=== PATIENT | male | born 1985 | race Caucasian/White ===

== ENCOUNTER 2016-11-04 19:20 | Emergency (ER) | payer OTHER ==
--- NOTE | 2016-11-04 20:30 | ED NURSING NOTES ---
Clinical Report - Nurses [facility] [address] [place] [address] 11/04/2016 19:21 Patient: JAS VILLARREAL TRIAGE Triage time 19:Nov 04 2016. Acuity: LEVEL 4. Chief Complaint: (redness on finger). 19:33 11/04/16. --19:36 Kristy Nuñez R.N. 19:33 11/04/16. BP: 103/67. HR: 70. RR: 16. O2 saturation: 97%. Temp: 98.2 F. Pain level now: 02/17. --19:36 Kristy Nuñez R.N. <<STRICKEN ENTRY-- 19:11/04/16. HR: 70. RR: 16. O2 saturation: 97%. Temp: 98.2 F. --19:36 Kristy Nuñez R.N. --END STRIKE>> Change to Details. --19:59 Kristy Nuñez R.N. Weight: 108.8 kg stated. Height/Length: 72 inches Per Patient. BMI: 32.6. --19:32 Kristy Nuñez R.N. Medications None. --19:33 Kristy Nuñez R.N. Medication/allergy information source: the patient. --19:36 Kristy Nuñez R.N. Allergies No Known Drug Allergy. --19:33 Kristy Nuñez R.N. History Arrived by private vehicle. Historian: patient. Unaccompanied. Onset. (last friday). ( states was cleaning brush and was poked numerous times with thornes. States has been washing in and soaking it with no improvement). No fever. Treatment GI TECHNICIAN: None. PAST MEDICAL HX: Immunizations: status is unknown. SOCIAL HX: Heavy tobacco smoker- less than 1 pack per day. No alcohol use or drug use. No infectious disease exposure. ABUSE ASSESSMENT: No report of abuse. SELF HARM ASSESSMENT: A self harm assessment was performed. The patient answered "no" to the question "Have you recently felt down, depressed, or hopeless?", "Have you noticed less interest or pleasure in doing things?", "Do you have thoughts of harming or killing yourself?", "Are you here because you tried to hurt yourself?", "Have you ever tried to hurt yourself before today?", "Have you recently had thoughts about harming or killing others?" and "Do you have any dangerous items in your possession?". FALL RISK ASSESSMENT: Fall risk assessment completed. No fall risk identified. NUTRITIONAL RISK ASSESSMENT: The nutritional risk assessment revealed no deficiencies. FUNCTIONAL ASSESSMENT: Functional assessment: no impairments noted. LEARNING NEEDS ASSESSMENT: The learning needs assessment revealed no barriers. SKIN INTEGRITY ASSESSMENT: Skin integrity risk assessment completed. No skin integrity risk identified. --19:36 Kristy Nuñez R.N. PROBLEMS: Dental Caries. Dental Pain. Headache. --19:34 Kristy Nuñez R.N. ADDITIONAL SURGERIES: Sinus Surgery. --19:34 Kristy Nuñez R.N. Interventions ID band on patient. --19:36 Kristy Nuñez R.N. NURSING PROGRESS NOTES 19:35 11/04/16. The initial plan of care for this patient includes an assessment with efforts to address the presence of pain; impairment of the integumentary system. This plan of care was discussed with the patient. Reassurance given. Patient identifiers checked. Call light placed in reach. Bed placed in lowest position. Brakes of bed on. Patient ready for evaluation. --19:38 Kristy Nuñez R.N. 20:09 11/04/16. BP: 110/73. HR: 88. RR: 16. O2 saturation: 97% on room air. Temp: 97.9 F (oral). Pain level now: 12/18. --20:10 Kaur San 20:53 11/04/2016 Bactrim DS (Sulfamethoxazole-TMP DS) PO 1 tab given. Allergies verified and confirmed 5 rights. --20:53 Elver Ellison R.N. 20:53 11/04/2016 Keflex (Cephalexin) PO 500 mg given. Allergies verified and confirmed 5 rights. --20:53 Elver Ellison R.N. DISPOSITION / DISCHARGE Departure time: 20:55. Condition at departure: improved. No learning barriers present. Discharge instructions provided and reviewed with the patient. Reviewed medication(s) side effects, precautions, dosing and course information. Prescription(s) given to the patient (antibiotics and motrin). [facility] Patient verbalized understanding. Written instructions provided in [place]. The patient was discharged by the physician retail event and sales assistant. He was discharged home and unaccompanied at time of discharge. He left the Emergency Department ambulatory and via private vehicle. Patient driving. ( pt did not want his VS taken again at discharge.). OK COMA SCORE: Ok Coma Scale: 15- eyes open spontaneously (4); best verbal response- oriented x 4 (5); best motor response- obeys commands (6). --20:57 Elver Ellison R.N. Locked/Released at 11/04/2016 20:57 by Elver Ellison R.N.
--- NOTE | 2016-11-04 20:30 | ED ORDER SUMMARY ---
..... Patient: JAS VILLARREAL OrderSheet [facility] VisitID: [id number] [address] [place] [address] 31y, M Registration Date/Time: 11/04/2016 ORDER SHEET Weight: 108.8 kg (stated) Allergies: No Known Drug Allergy GENERAL ORDERS: Finger Left (3) Urgent (19:45 11/04/2016 EKoroleva P.A.-C) (Ack 19:48 AMcQuoid ER Tech1) (20:01 AMcQuoid ER Tech1) Vitals (BP) (19:56 11/04/2016 EKoroleva P.A.-C) (20:08 CHategekimana) MEDICATION ORDERS: Bactrim DS PO (Tablet 800-160 mg) 1 tab (NOW) (20:28 11/04/2016 EKoroleva P.A.-C) (20:53 TLewis R.N.) Keflex PO 500 mg (NOW) (20:28 11/04/2016 EKoroleva P.A.-C) (20:53 TLewis R.N.) IV FLUIDS: ORDER SHEET NOTES: [Electronically signed by Elver Ellison R.N. (20:57 11/04/2016)] [Electronically signed by Kala Alexander P.A.-C (21:18 11/04/2016)] [Electronically locked/signed by Elver Ellison R.N. (20:57 11/04/2016)]
--- NOTE | 2016-11-04 20:30 | ED ORDER SUMMARY ---
..... Patient: JAS VILLARREAL OrderSheet [facility] VisitID: [id number] [address] [place] [address] 31y, M Registration Date/Time: 11/04/2016 ORDER SHEET Weight: 108.8 kg (stated) Allergies: No Known Drug Allergy GENERAL ORDERS: Finger Left (3) Urgent (19:45 11/04/2016 EKoroleva P.A.-C) (Ack 19:48 AMcQuoid ER Tech1) (20:01 AMcQuoid ER Tech1) Vitals (BP) (19:56 11/04/2016 EKoroleva P.A.-C) (20:08 CHategekimana) MEDICATION ORDERS: Bactrim DS PO (Tablet 800-160 mg) 1 tab (NOW) (20:28 11/04/2016 EKoroleva P.A.-C) (20:53 TLewis R.N.) Keflex PO 500 mg (NOW) (20:28 11/04/2016 EKoroleva P.A.-C) (20:53 TLewis R.N.) IV FLUIDS: ORDER SHEET NOTES: [Electronically signed by Elver Ellison R.N. (20:57 11/04/2016)] [Electronically signed by Kala Alexander P.A.-C (21:18 11/04/2016)] [Electronically locked/signed by Elver Ellison R.N. (20:57 11/04/2016)]
--- NOTE | 2016-11-04 20:30 | ED NURSING NOTES ---
Clinical Report - Nurses [facility] [address] [place] [address] 11/04/2016 19:21 Patient: JAS VILLARREAL TRIAGE Triage time 19:Nov 04 2016. Acuity: LEVEL 4. Chief Complaint: (redness on finger). 19:33 11/04/16. --19:36 Kristy Nuñez R.N. 19:33 11/04/16. BP: 103/67. HR: 70. RR: 16. O2 saturation: 97%. Temp: 98.2 F. Pain level now: 02/17. --19:36 Kristy Nuñez R.N. <<STRICKEN ENTRY-- 19:11/04/16. HR: 70. RR: 16. O2 saturation: 97%. Temp: 98.2 F. --19:36 Kristy Nuñez R.N. --END STRIKE>> Change to Details. --19:59 Kristy Nuñez R.N. Weight: 108.8 kg stated. Height/Length: 72 inches Per Patient. BMI: 32.6. --19:32 Kristy Nuñez R.N. Medications None. --19:33 Kristy Nuñez R.N. Medication/allergy information source: the patient. --19:36 Kristy Nuñez R.N. Allergies No Known Drug Allergy. --19:33 Kristy Nuñez R.N. History Arrived by private vehicle. Historian: patient. Unaccompanied. Onset. (last friday). ( states was cleaning brush and was poked numerous times with thornes. States has been washing in and soaking it with no improvement). No fever. Treatment TRUST ADMINISTRATIVE ASSISTANT: None. PAST MEDICAL HX: Immunizations: status is unknown. SOCIAL HX: Heavy tobacco smoker- less than 1 pack per day. No alcohol use or drug use. No infectious disease exposure. ABUSE ASSESSMENT: No report of abuse. SELF HARM ASSESSMENT: A self harm assessment was performed. The patient answered "no" to the question "Have you recently felt down, depressed, or hopeless?", "Have you noticed less interest or pleasure in doing things?", "Do you have thoughts of harming or killing yourself?", "Are you here because you tried to hurt yourself?", "Have you ever tried to hurt yourself before today?", "Have you recently had thoughts about harming or killing others?" and "Do you have any dangerous items in your possession?". FALL RISK ASSESSMENT: Fall risk assessment completed. No fall risk identified. NUTRITIONAL RISK ASSESSMENT: The nutritional risk assessment revealed no deficiencies. FUNCTIONAL ASSESSMENT: Functional assessment: no impairments noted. LEARNING NEEDS ASSESSMENT: The learning needs assessment revealed no barriers. SKIN INTEGRITY ASSESSMENT: Skin integrity risk assessment completed. No skin integrity risk identified. --19:36 Kristy Nuñez R.N. PROBLEMS: Dental Caries. Dental Pain. Headache. --19:34 Kristy Nuñez R.N. ADDITIONAL SURGERIES: Sinus Surgery. --19:34 Kristy Nuñez R.N. Interventions ID band on patient. --19:36 Kristy Nuñez R.N. NURSING PROGRESS NOTES 19:35 11/04/16. The initial plan of care for this patient includes an assessment with efforts to address the presence of pain; impairment of the integumentary system. This plan of care was discussed with the patient. Reassurance given. Patient identifiers checked. Call light placed in reach. Bed placed in lowest position. Brakes of bed on. Patient ready for evaluation. --19:38 Kristy Nuñez R.N. 20:09 11/04/16. BP: 110/73. HR: 88. RR: 16. O2 saturation: 97% on room air. Temp: 97.9 F (oral). Pain level now: 12/18. --20:10 Kaur San 20:53 11/04/2016 Bactrim DS (Sulfamethoxazole-TMP DS) PO 1 tab given. Allergies verified and confirmed 5 rights. --20:53 Elver Ellison R.N. 20:53 11/04/2016 Keflex (Cephalexin) PO 500 mg given. Allergies verified and confirmed 5 rights. --20:53 Elver Ellison R.N. DISPOSITION / DISCHARGE Departure time: 20:55. Condition at departure: improved. No learning barriers present. Discharge instructions provided and reviewed with the patient. Reviewed medication(s) side effects, precautions, dosing and course information. Prescription(s) given to the patient (antibiotics and motrin). Reviewed referrals ([facility]). Patient verbalized understanding. Written instructions provided in [place]. The patient was discharged by the physician title i instructional assistant. He was discharged home and unaccompanied at time of discharge. He left the Emergency Department ambulatory and via private vehicle. Patient driving. ( pt did not want his VS taken again at discharge.). OK COMA SCORE: Ok Coma Scale: 15- eyes open spontaneously (4); best verbal response- oriented x 4 (5); best motor response- obeys commands (6). --20:57 Elver Ellison R.N. Locked/Released at 11/04/2016 20:57 by Elver Ellison R.N.
--- NOTE | 2016-11-04 20:30 | ED CLINICAL REPORT ---
Clinical Report - Physicians/Mid Levels [facility] [address] [place] [address] 11/04/2016 19:21 Patient: JAS VILLARREAL Time Seen: 19:48 Nov 04 2016. Arrived- By private vehicle. Historian- patient. HISTORY OF PRESENT ILLNESS Chief Complaint: SKIN RASH. 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 It is described as painful. It has been located on the left upper extremity (left middle finger). A possible cause has been identified. 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 REVIEW OF SYSTEMS No fever, cough, difficulty breathing, nausea or genital lesions. All systems otherwise negative, except as recorded above. SOCIAL HISTORY Smoker- current status unknown. No alcohol use or drug use. ADDITIONAL NOTES The nursing notes have been reviewed. PHYSICAL EXAM Vital Signs: 11/04/2016 19:33 HR: 70. RR: 16. O2 saturation: 97%. Temp: 98.2 F. Appearance: Alert. CVS: Normal heart rate and rhythm. Heart sounds normal. Respiratory: No respiratory distress. Skin: Skin warm. Erythema. No tender indurated area. Cellulitis (at proximal mcp extending into drosal pip, full rom/ and sensation). Skin rash present- b/l ears erythema, no warmth, no fluctulance. There is warmth, tenderness and swelling. No lymphangitis, induration, weeping, thickening or inflammation. No abscess. Extremities: (full rom , good distal sensation and good cap reifll). Neuro: Oriented X 3. LABS, X-RAYS, AND EKG Lt UE Digits X-ray: No bony lesion, air in the soft tissue or foreign body. No digit fracture of the left upper extremity or left metacarpal fracture. Joint spaces normal. Interpretation time: 2019. PROGRESS AND PROCEDURES Course of Care: At this time early signs of infection, with cellulitis, full range of motion, no signs of tenosynovitis. 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 Denies history of MRSA, [facility]. Stable otherwise. Afebrile. Patient for close monitoring and follow-up and understands plan and need for such. No palpable abscess at this time and suspicion for such is low. Patient is stable. Patient/family counseled. Disposition: Discharged. CLINICAL IMPRESSION Cellulitis of the left middle finger. INSTRUCTIONS (formerly [facility]: Address: [address] [place] [address] warm packs or soaks in water and soap/ epsom salt repeat exam if not clearly improved in 48 hours at [facility] or worst case scenario in [facility] , keep finger/ hand above heart at eye level MOTRIN). Prescription Medications: Bactrim DS 800 mg / 160 mg: take 1 tablet orally every 12 hours for 10 days. No refill. Substitution is permissible. Keflex 500 mg: take 1 capsule orally every 8 hours for 10 days. No refill. Substitution is permissible. Motrin 800 mg tablets: take 1 tablet orally every 8 hours for 5 days, as needed for pain. Dispense fifteen (15). No refill. Substitution is permissible. Bactroban 2% ointment: apply small amount to affected area three times daily for 5 days. Dispense twenty-two (22) grams. No refills. Substitution is permissible. Follow-up: Follow up with your doctor in two days. (Electronically signed by Kala Alexander P.A.-C 11/04/2016 21:19)
--- NOTE | 2016-11-04 20:30 | ED CLINICAL REPORT ---
Clinical Report - Physicians/Mid Levels [facility] [address] [place] [address] 11/04/2016 19:21 Patient: JAS VILLARREAL Time Seen: 19:48 Nov 04 2016. Arrived- By private vehicle. Historian- patient. HISTORY OF PRESENT ILLNESS Chief Complaint: SKIN RASH. 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 It is described as painful. It has been located on the left upper extremity (left middle finger). A possible cause has been identified. 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 REVIEW OF SYSTEMS No fever, cough, difficulty breathing, nausea or genital lesions. All systems otherwise negative, except as recorded above. SOCIAL HISTORY Smoker- current status unknown. No alcohol use or drug use. ADDITIONAL NOTES The nursing notes have been reviewed. PHYSICAL EXAM Vital Signs: 11/04/2016 19:33 HR: 70. RR: 16. O2 saturation: 97%. Temp: 98.2 F. Appearance: Alert. CVS: Normal heart rate and rhythm. Heart sounds normal. Respiratory: No respiratory distress. Skin: Skin warm. Erythema. No tender indurated area. Cellulitis (at proximal mcp extending into drosal pip, full rom/ and sensation). Skin rash present- b/l ears erythema, no warmth, no fluctulance. There is warmth, tenderness and swelling. No lymphangitis, induration, weeping, thickening or inflammation. No abscess. Extremities: (full rom , good distal sensation and good cap reifll). Neuro: Oriented X 3. LABS, X-RAYS, AND EKG Lt UE Digits X-ray: No bony lesion, air in the soft tissue or foreign body. No digit fracture of the left upper extremity or left metacarpal fracture. Joint spaces normal. Interpretation time: 2019. PROGRESS AND PROCEDURES Course of Care: At this time early signs of infection, with cellulitis, full range of motion, no signs of tenosynovitis. 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 Denies history of MRSA, [facility]. Stable otherwise. Afebrile. Patient for close monitoring and follow-up and understands plan and need for such. No palpable abscess at this time and suspicion for such is low. Patient is stable. Patient/family counseled. Disposition: Discharged. CLINICAL IMPRESSION Cellulitis of the left middle finger. INSTRUCTIONS (formerly [facility]: Address: [address] [place] [address] warm packs or soaks in water and soap/ epsom salt repeat exam if not clearly improved in 48 hours at [facility] or worst case scenario in [facility] , keep finger/ hand above heart at eye level MOTRIN). Prescription Medications: Bactrim DS 800 mg / 160 mg: take 1 tablet orally every 12 hours for 10 days. No refill. Substitution is permissible. Keflex 500 mg: take 1 capsule orally every 8 hours for 10 days. No refill. Substitution is permissible. Motrin 800 mg tablets: take 1 tablet orally every 8 hours for 5 days, as needed for pain. Dispense fifteen (15). No refill. Substitution is permissible. Bactroban 2% ointment: apply small amount to affected area three times daily for 5 days. Dispense twenty-two (22) grams. No refills. Substitution is permissible. Follow-up: Follow up with your doctor in two days. (Electronically signed by Kala Alexander P.A.-C 11/04/2016 21:19)
--- NOTE | 2016-11-04 21:19 | ED MED RECONCILIATION SUMMARY ---
Patient: JAS VILLARREAL Medication Reconciliation Report [facility] VisitID: [id number] [address] [place] [address] 31y, M Registration Date/Time: 11/04/2016 Weight: 108.8 kg Height/Length: 72 in. BMI: 32.6 ALLERGIES: No Known Drug Allergy The patient's Home Medications are listed below: NONE. The source(s) of the original Home Medication information: patient The following Medications were given to the patient in the Emergency Department: Bactrim DS [PO] PO 1 tab, administered: 11/04/2016 8:53:00 PM Keflex [PO] PO 500 mg, administered: 11/04/2016 8:53:00 PM The following Medications were prescribed to the patient: Bactrim DS 800 mg / 160 mg: take 1 tablet orally every 12 hours for 10 days. No refill. Substitution is permissible. -- Kala Alexander, P.A.-C Keflex 500 mg: take 1 capsule orally every 8 hours for 10 days. No refill. Substitution is permissible. -- Kala Alexander, P.A.-C Motrin 800 mg tablets: take 1 tablet orally every 8 hours for 5 days, as needed for pain. Dispense fifteen (15). No refill. Substitution is permissible. -- Kala Alexander, P.A.-C Bactroban 2% ointment: apply small amount to affected area three times daily for 5 days. Dispense twenty-two (22) grams. No refills. Substitution is permissible. -- Kala Alexander, P.A.-C
--- NOTE | 2016-11-04 21:19 | ED MAR SUMMARY ---
..... Medication Administration Record [facility] [address] [place] [address] Patient: JAS VILLARREAL Visit ID: [id number] 31y, M Weight: 108.8 kg Height/Length: 72 in BMI: 32.6 ALLERGIES: No Known Drug Allergy Given 20:53 11/04/2016 Elver Ellison R.N. Medication Administered: BACTRIM DS [PO] (SULFAMETHOXAZOLE-TMP DS), Dose: 1 tab PO. Medication Ordered: Bactrim DS PO (Tablet 800-160 mg) 1 tab (NOW). Given 20:53 11/04/2016 Elver Ellison R.N. Medication Administered: KEFLEX [PO] (CEPHALEXIN), Dose: 500 mg PO. Medication Ordered: Keflex PO 500 mg (NOW).
--- NOTE | 2016-11-04 21:19 | ED DISCHARGE INSTRUCTIONS ---
Patient: JAS VILLARREAL General Instructions [facility] VisitID: [id number] [address] [place] [address] 31y, M Registration Date/Time: 11/04/2016 Cellulitis of the left middle finger. INSTRUCTIONS ([facility]: Address: [address] [place] [address] warm packs or soaks in water and soap/ epsom salt repeat exam if not clearly improved in 48 hours at [facility] or worst case scenario in ER [facility] , keep finger/ hand above heart at eye level MOTRIN). Prescription Medications: Bactrim DS 800 mg / 160 mg: take 1 tablet orally every 12 hours for 10 days. No refill. Substitution is permissible. Keflex 500 mg: take 1 capsule orally every 8 hours for 10 days. No refill. Substitution is permissible. Motrin 800 mg tablets: take 1 tablet orally every 8 hours for 5 days, as needed for pain. Dispense fifteen (15). No refill. Substitution is permissible. Bactroban 2% ointment: apply small amount to affected area three times daily for 5 days. Dispense twenty-two (22) grams. No refills. Substitution is permissible. Follow-up: Follow up with your doctor in two days. ADDITIONAL INFORMATION Cellulitis You have an infection of the skin known as cellulitis. This usually starts with a scrape, cut, insect bite, blister or other opening in the skin which becomes infected. This is a serious condition. It must be watched closely to be sure the infection is not spreading. With antibiotic treatment, the size of the red area will gradually shrink in size until the skin returns to normal. This will take 7-10 days. The red area should never increase in size once the antibiotic medicine has been started. Occasionally, an infection will be resistant to one antibiotic and another one will have to be used. Home Care: 1) Limit the use of the affected part, since excess movement can cause the infection to spread. 2) If the infection is on your leg, walk as little as possible during the first few days of the treatment. Keep your leg elevated while sitting. This will reduce swelling. 3) Take all of the antibiotic medicine exactly as directed until it is gone. Be careful not to miss any doses, especially during the first seven days. Follow Up with your doctor or this facility as directed. Check the infected area daily for the warning signs listed below. Get Prompt Medical Attention if any of the following occur: -- Spreading area of redness -- Increasing swelling or pain -- Appearance of pus or drainage -- Fever over 100.4 F (38.0 C) oral, or over 101.4 F (38.6 C) rectal, after two days on antibiotics Sulfamethoxazole, Trimethoprim Oral tablet What is this medicine? SULFAMETHOXAZOLE; TRIMETHOPRIM or SMX-TMP (suhl fuh meth OK ang zohl; trye METH oh prim) is a combination of a sulfonamide antibiotic and a second antibiotic, trimethoprim. It is used to treat or prevent certain kinds of bacterial infections. It will not work for colds, flu, or other viral infections. How should I use this medicine? Take this medicine by mouth with a full glass of water. Follow the directions on the prescription label. Take your medicine at regular intervals. Do not take it more often than directed. Do not skip doses or stop your medicine early. Talk to your plasma processor regarding the use of this medicine in children. Special care may be needed. This medicine has been used in children as young as 2 months of age. What side effects may I notice from receiving this medicine? Side effects that you should report to your doctor or health child care cook as soon as possible: allergic reactions like skin rash or hives, swelling of the face, lips, or tongue breathing problems fever or chills, sore throat irregular heartbeat, chest pain joint or muscle pain pain or difficulty passing urine red pinpoint spots on skin redness, blistering, peeling or loosening of the skin, including inside the mouth unusual bleeding or bruising unusually weak or tired yellowing of the eyes or skin Side effects that usually do not require medical attention (report to your doctor or health child care cook if they continue or are bothersome): diarrhea dizziness headache loss of appetite nausea, vomiting nervousness What may interact with this medicine? Do not take this medicine with any of the following medications: aminobenzoate potassium dofetilide metronidazole This medicine may also interact with the following medications: ALIYA inhibitors like benazepril, enalapril, lisinopril, and ramipril cyclosporine digoxin diuretics indomethacin medicines for diabetes methenamine methotrexate phenytoin potassium supplements pyrimethamine sulfinpyrazone tricyclic antidepressants warfarin What if I miss a dose? If you miss a dose, take it as soon as you can. If it is almost time for your next dose, take only that dose. Do not take double or extra doses. Where should I keep my medicine? Keep out of the reach of children. Store at room temperature between 20 to 25 degrees C (68 to 77 degrees F). Protect from light. Throw away any unused medicine after the expiration date. What should I tell my health care provider before I take this medicine? They need to know if you have any of these conditions: anemia asthma being treated with anticonvulsants if you frequently drink alcohol containing drinks kidney disease liver disease low level of folic acid or wctqicg-[id number] dehydrogenase poor nutrition or malabsorption porphyria severe allergies thyroid disorder an unusual or allergic reaction to sulfamethoxazole, trimethoprim, sulfa drugs, other medicines, foods, dyes, or preservatives or trying to get breast-feeding What should I watch for while using this medicine? Tell your doctor or health child care cook if your symptoms do not improve. Drink several glasses of water a day to reduce the risk of kidney problems. Do not treat diarrhea with over the counter products. Contact your doctor if you have diarrhea that lasts more than 2 days or if it is severe and watery. This medicine can make you more sensitive to the sun. Keep out of the sun. If you cannot avoid being in the sun, wear protective clothing and use a sunscreen. Do not use sun lamps or tanning beds/booths. Cephalexin Monohydrate Oral tablet What is this medicine? CEPHALEXIN (sef a TIA in) is a cephalosporin antibiotic. It is used to treat certain kinds of bacterial infections It will not work for colds, flu, or other viral infections. How should I use this medicine? Take this medicine by mouth with a full glass of water. Follow the directions on the prescription label. This medicine can be taken with or without food. Take your medicine at regular intervals. Do not take your medicine more often than directed. Take all of your medicine as directed even if you think you are better. Do not skip doses or stop your medicine early. Talk to your plasma processor regarding the use of this medicine in children. While this drug may be prescribed for selected conditions, precautions do apply. What side effects may I notice from receiving this medicine? Side effects that you should report to your doctor or health child care cook as soon as possible: allergic reactions like skin rash, itching or hives, swelling of the face, lips, or tongue breathing problems pain or trouble passing urine redness, blistering, peeling or loosening of the skin, including inside the mouth severe or watery diarrhea unusually weak or tired yellowing of the eyes, skin Side effects that usually do not require medical attention (report to your doctor or health child care cook if they continue or are bothersome): gas or heartburn genital or anal irritation headache joint or muscle pain nausea, vomiting What may interact with this medicine? probenecid some other antibiotics What if I miss a dose? If you miss a dose, take it as soon as you can. If it is almost time for your next dose, take only that dose. Do not take double or extra doses. There should be at least 4 to 6 hours between doses. Where should I keep my medicine? Keep out of the reach of children. Store at room temperature between 59 and 86 degrees F (15 and 30 degrees C). Throw away any unused medicine after the expiration date. What should I tell my health care provider before I take this medicine? They need to know if you have any of these conditions: kidney disease stomach or intestine problems, especially colitis an unusual or allergic reaction to cephalexin, other cephalosporins, penicillins, other antibiotics, medicines, foods, dyes or preservatives or trying to get breast-feeding What should I watch for while using this medicine? Tell your doctor or health child care cook if your symptoms do not begin to improve in a few days. Do not treat diarrhea with over the counter products. Contact your doctor if you have diarrhea that lasts more than 2 days or if it is severe and watery. If you have diabetes, you may get a false-positive result for sugar in your urine. Check with your doctor or health child care cook. You have been given the following additional information: Cellulitis Sulfamethoxazole, Trimethoprim Oral tablet Cephalexin Monohydrate Oral tablet (Electronically signed by Kala Alexander P.A.-C 11/04/2016 21:19)
--- NOTE | 2016-11-04 21:19 | ED DISCHARGE INSTRUCTIONS ---
Patient: JAS VILLARREAL General Instructions [facility] VisitID: [id number] [address] [place] [address] 31y, M Registration Date/Time: 11/04/2016 Cellulitis of the left middle finger. INSTRUCTIONS ([facility]: Address: [address] [place] [address] warm packs or soaks in water and soap/ epsom salt repeat exam if not clearly improved in 48 hours at [facility] or worst case scenario in ER [facility] , keep finger/ hand above heart at eye level MOTRIN). Prescription Medications: Bactrim DS 800 mg / 160 mg: take 1 tablet orally every 12 hours for 10 days. No refill. Substitution is permissible. Keflex 500 mg: take 1 capsule orally every 8 hours for 10 days. No refill. Substitution is permissible. Motrin 800 mg tablets: take 1 tablet orally every 8 hours for 5 days, as needed for pain. Dispense fifteen (15). No refill. Substitution is permissible. Bactroban 2% ointment: apply small amount to affected area three times daily for 5 days. Dispense twenty-two (22) grams. No refills. Substitution is permissible. Follow-up: Follow up with your doctor in two days. ADDITIONAL INFORMATION Cellulitis You have an infection of the skin known as cellulitis. This usually starts with a scrape, cut, insect bite, blister or other opening in the skin which becomes infected. This is a serious condition. It must be watched closely to be sure the infection is not spreading. With antibiotic treatment, the size of the red area will gradually shrink in size until the skin returns to normal. This will take 7-10 days. The red area should never increase in size once the antibiotic medicine has been started. Occasionally, an infection will be resistant to one antibiotic and another one will have to be used. Home Care: 1) Limit the use of the affected part, since excess movement can cause the infection to spread. 2) If the infection is on your leg, walk as little as possible during the first few days of the treatment. Keep your leg elevated while sitting. This will reduce swelling. 3) Take all of the antibiotic medicine exactly as directed until it is gone. Be careful not to miss any doses, especially during the first seven days. Follow Up with your doctor or this facility as directed. Check the infected area daily for the warning signs listed below. Get Prompt Medical Attention if any of the following occur: -- Spreading area of redness -- Increasing swelling or pain -- Appearance of pus or drainage -- Fever over 100.4 F (38.0 C) oral, or over 101.4 F (38.6 C) rectal, after two days on antibiotics Sulfamethoxazole, Trimethoprim Oral tablet What is this medicine? SULFAMETHOXAZOLE; TRIMETHOPRIM or SMX-TMP (suhl fuh meth OK ang zohl; trye METH oh prim) is a combination of a sulfonamide antibiotic and a second antibiotic, trimethoprim. It is used to treat or prevent certain kinds of bacterial infections. It will not work for colds, flu, or other viral infections. How should I use this medicine? Take this medicine by mouth with a full glass of water. Follow the directions on the prescription label. Take your medicine at regular intervals. Do not take it more often than directed. Do not skip doses or stop your medicine early. Talk to your safety fire boss regarding the use of this medicine in children. Special care may be needed. This medicine has been used in children as young as 2 months of age. What side effects may I notice from receiving this medicine? Side effects that you should report to your doctor or health transitions rn care coordinator as soon as possible: allergic reactions like skin rash or hives, swelling of the face, lips, or tongue breathing problems fever or chills, sore throat irregular heartbeat, chest pain joint or muscle pain pain or difficulty passing urine red pinpoint spots on skin redness, blistering, peeling or loosening of the skin, including inside the mouth unusual bleeding or bruising unusually weak or tired yellowing of the eyes or skin Side effects that usually do not require medical attention (report to your doctor or health transitions rn care coordinator if they continue or are bothersome): diarrhea dizziness headache loss of appetite nausea, vomiting nervousness What may interact with this medicine? Do not take this medicine with any of the following medications: aminobenzoate potassium dofetilide metronidazole This medicine may also interact with the following medications: ALIYA inhibitors like benazepril, enalapril, lisinopril, and ramipril cyclosporine digoxin diuretics indomethacin medicines for diabetes methenamine methotrexate phenytoin potassium supplements pyrimethamine sulfinpyrazone tricyclic antidepressants warfarin What if I miss a dose? If you miss a dose, take it as soon as you can. If it is almost time for your next dose, take only that dose. Do not take double or extra doses. Where should I keep my medicine? Keep out of the reach of children. Store at room temperature between 20 to 25 degrees C (68 to 77 degrees F). Protect from light. Throw away any unused medicine after the expiration date. What should I tell my health care provider before I take this medicine? They need to know if you have any of these conditions: anemia asthma being treated with anticonvulsants if you frequently drink alcohol containing drinks kidney disease liver disease low level of folic acid or trnftim-4-noujssicw dehydrogenase poor nutrition or malabsorption porphyria severe allergies thyroid disorder an unusual or allergic reaction to sulfamethoxazole, trimethoprim, sulfa drugs, other medicines, foods, dyes, or preservatives or trying to get breast-feeding What should I watch for while using this medicine? Tell your doctor or health transitions rn care coordinator if your symptoms do not improve. Drink several glasses of water a day to reduce the risk of kidney problems. Do not treat diarrhea with over the counter products. Contact your doctor if you have diarrhea that lasts more than 2 days or if it is severe and watery. This medicine can make you more sensitive to the sun. Keep out of the sun. If you cannot avoid being in the sun, wear protective clothing and use a sunscreen. Do not use sun lamps or tanning beds/booths. Cephalexin Monohydrate Oral tablet What is this medicine? CEPHALEXIN (sef a TIA in) is a cephalosporin antibiotic. It is used to treat certain kinds of bacterial infections It will not work for colds, flu, or other viral infections. How should I use this medicine? Take this medicine by mouth with a full glass of water. Follow the directions on the prescription label. This medicine can be taken with or without food. Take your medicine at regular intervals. Do not take your medicine more often than directed. Take all of your medicine as directed even if you think you are better. Do not skip doses or stop your medicine early. Talk to your safety fire boss regarding the use of this medicine in children. While this drug may be prescribed for selected conditions, precautions do apply. What side effects may I notice from receiving this medicine? Side effects that you should report to your doctor or health transitions rn care coordinator as soon as possible: allergic reactions like skin rash, itching or hives, swelling of the face, lips, or tongue breathing problems pain or trouble passing urine redness, blistering, peeling or loosening of the skin, including inside the mouth severe or watery diarrhea unusually weak or tired yellowing of the eyes, skin Side effects that usually do not require medical attention (report to your doctor or health transitions rn care coordinator if they continue or are bothersome): gas or heartburn genital or anal irritation headache joint or muscle pain nausea, vomiting What may interact with this medicine? probenecid some other antibiotics What if I miss a dose? If you miss a dose, take it as soon as you can. If it is almost time for your next dose, take only that dose. Do not take double or extra doses. There should be at least 4 to 6 hours between doses. Where should I keep my medicine? Keep out of the reach of children. Store at room temperature between 59 and 86 degrees F (15 and 30 degrees C). Throw away any unused medicine after the expiration date. What should I tell my health care provider before I take this medicine? They need to know if you have any of these conditions: kidney disease stomach or intestine problems, especially colitis an unusual or allergic reaction to cephalexin, other cephalosporins, penicillins, other antibiotics, medicines, foods, dyes or preservatives or trying to get breast-feeding What should I watch for while using this medicine? Tell your doctor or health transitions rn care coordinator if your symptoms do not begin to improve in a few days. Do not treat diarrhea with over the counter products. Contact your doctor if you have diarrhea that lasts more than 2 days or if it is severe and watery. If you have diabetes, you may get a false-positive result for sugar in your urine. Check with your doctor or health transitions rn care coordinator. You have been given the following additional information: Cellulitis Sulfamethoxazole, Trimethoprim Oral tablet Cephalexin Monohydrate Oral tablet (Electronically signed by Kala Alexander P.A.-C 11/04/2016 21:19)
--- NOTE | 2016-11-04 21:19 | ED MED RECONCILIATION SUMMARY ---
Patient: JAS VILLARREAL Medication Reconciliation Report [facility] VisitID: [id number] [address] [place] [address] 31y, M Registration Date/Time: 11/04/2016 Weight: 108.8 kg Height/Length: 72 in. BMI: 32.6 ALLERGIES: No Known Drug Allergy The patient's Home Medications are listed below: NONE. The source(s) of the original Home Medication information: patient The following Medications were given to the patient in the Emergency Department: Bactrim DS [PO] PO 1 tab, administered: 11/04/2016 8:53:00 PM Keflex [PO] PO 500 mg, administered: 11/04/2016 8:53:00 PM The following Medications were prescribed to the patient: Bactrim DS 800 mg / 160 mg: take 1 tablet orally every 12 hours for 10 days. No refill. Substitution is permissible. -- Kala Alexander, P.A.-C Keflex 500 mg: take 1 capsule orally every 8 hours for 10 days. No refill. Substitution is permissible. -- Kala Alexander, P.A.-C Motrin 800 mg tablets: take 1 tablet orally every 8 hours for 5 days, as needed for pain. Dispense fifteen (15). No refill. Substitution is permissible. -- Kala Alexander, P.A.-C Bactroban 2% ointment: apply small amount to affected area three times daily for 5 days. Dispense twenty-two (22) grams. No refills. Substitution is permissible. -- Kala Alexander, P.A.-C
--- NOTE | 2016-11-04 21:19 | ED MAR SUMMARY ---
..... Medication Administration Record [facility] [address] [place] [address] Patient: JAS VILLARREAL Visit ID: [id number] 31y, M Weight: 108.8 kg Height/Length: 72 in BMI: 32.6 ALLERGIES: No Known Drug Allergy Given 20:53 11/04/2016 Elver Ellison R.N. Medication Administered: BACTRIM DS [PO] (SULFAMETHOXAZOLE-TMP DS), Dose: 1 tab PO. Medication Ordered: Bactrim DS PO (Tablet 800-160 mg) 1 tab (NOW). Given 20:53 11/04/2016 Elver Ellison R.N. Medication Administered: KEFLEX [PO] (CEPHALEXIN), Dose: 500 mg PO. Medication Ordered: Keflex PO 500 mg (NOW).
--- NOTE | 2016-11-04 21:20 | DIAGNOSTIC IMAGING REPORT ---
PROCEDURE: XR FINGER - LEFT INDICATION: PAIN TECHNIQUE: A P hand and two views of the left third digit. COMPARISON: None. FINDINGS: Normal mineralization. No fractures. Normal osseous alignment. Incidental note made of asymmetrically shortened fourth and fifth metacarpals. No suspicious soft-tissue gas or radiodense foreign bodies. Moderate soft tissue swelling, mainly around the third proximal phalanx and third PIP joint. IMPRESSION: 1. Intact hand and third digit. 2. Moderate proximal third digit soft tissue swelling without soft tissue gas or radiodense foreign body.
== END 2016-11-04 20:55 | disposition home or self-care (01) ==
LOC: ED SRH 19:20
DX: L03.012 Cellulitis of left finger (principal); F17.210 Nicotine dependence, cigarettes, uncomplicated